=== PATIENT | female | born 1930 | race Caucasian/White ===

== ENCOUNTER 2016-05-12 12:55 | Inpatient (IN) | payer MEDICARE ==
[~2016-05-12] VITALS: Ht 152.4 cm; Wt 86.8 kg
[2016-05-12] VITALS (10 sets, daily range): BP systolic 120–220; BP diastolic 68–126; PULSE 72–99; RESP 20–32; TEMP 96.9–97.8; O2SAT 90–94
--- NOTE | 2016-05-12 13:42 | PD ---
HPI Chief Complaint: Respiratory Symptoms Time Seen by Provider: 13:23 Travel History International Travel<30 days: No Contact w/Intl Traveler<30days: No Traveled to known affect area: No History of Present Illness HPI This patient complains of shortness of breath. Duration 3 days. Severity is moderate. Partially alleviated by oxygen therapy. This patient is visiting from out of state. She wears oxygen at night. She has history of chronic A. 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 He recently saw her supervisor byproducts and confirmed this. She has no chest pain or fever or cough. She tracks her weight daily and recently gained a couple of pounds. Her legs are not better or worse than usual. She typically has some mild edema. She does take diuretics. She reports compliance with them. PFSH Past Medical History Hx Anticoagulant Therapy: Yes (XARELTO) Heart Rhythm Problems: Yes (A FIB) Cardiovascular Problems: Yes (HTN, CHOL, CHF , A FIB) High Cholesterol: Yes Congestive Heart Failure: Yes Diabetes: Yes Patient Takes Glucophage: No Diminished Hearing: No Hypertension: Yes Respiratory: Yes Thyroid Disease: Yes Tetanus Vaccination: Unknown ?: Not Past Surgical History Cardiac Surgery: Yes Coronary Stent: Yes Eye Surgery: Yes (BILAT. CATARACTS REMOVED) Hysterectomy: Yes (PARTIAL) Social History Alcohol Use: No Tobacco Use: No Substance Use: No Allergies-Medications (Allergen,Severity, Reaction): Coded Allergies: Beta Blockers (Verified Allergy, Severe, 05/12/16) Hydralazine (Verified Allergy, Severe, 05/12/16) Shellfish (Verified Allergy, Severe, 05/12/16) Tenormin (Verified Allergy, Severe, 05/12/16) Reported Meds & Prescriptions Reported Meds & Active Scripts Active Reported Vitamin D (Cholecalciferol) 1,000 Unit Tab 1,000 Units PO DAILY Multi Complete (Multiple Vitamins W/ Minerals) 1 Cap Cap 1 Cap PO DAILY Magnesium Oxide 400 Mg Cap 400 Mg PO DAILY K-Tab (Potassium Chloride) 20 Meq Tab 20 Meq PO DAILY Coq10 (Coenzyme Q10 (Ubidecarenone)) 100 Mg Cap 100 Mg PO DAILY Xarelto (Rivaroxaban) 15 Mg Tab 15 Mg PO HS Lipitor (Atorvastatin Calcium) 10 Mg Tab 10 Mg PO HS Cardizem (Diltiazem HCl) 120 Mg Tab 120 Mg PO HS Glipizide ER (Glipizide) 2.5 Mg Brianda 2.5 Mg PO DAILY Take with breakfast or first main meal of the day Furosemide 20 Mg Tab 20 Mg PO DAILY Diovan (Valsartan) 160 Mg Tab 160 Mg PO BID Cardizem LA (Diltiazem ER 24 HR) 240 Mg Brianda 240 Mg PO DAILY Probiotic (Lactobacillus Acidophilus) 1 Cap Cap 1 Cap PO DAILY Protonix (Pantoprazole Sodium) 40 Mg Tab 40 Mg PO BID Synthroid (Levothyroxine Sodium) 50 Mcg Tab 50 Mcg PO DAILY Review of Systems General / Constitutional: No: Fever Eyes: No: Visual changes HENT: No: Headaches Cardiovascular: Positive: Edema, No: Chest Pain or Discomfort Respiratory: Positive: Shortness of Breath Gastrointestinal: No: Abdominal Pain Genitourinary: No: Dysuria Musculoskeletal: Positive: Edema, No: Pain Skin: No Rash Neurologic: No: Weakness Psychiatric: No: Depression Endocrine: No: Polydipsia Hematologic/Lymphatic: No: Easy Bruising Physical Exam Narrative GENERAL: Well-nourished, well-developed patient in no apparent distress. SKIN: Warm and dry. HEAD: Atraumatic. Normocephalic. EYES: Pupils equal and round. No scleral icterus. No injection or drainage. ENT: No nasal bleeding or discharge. Mucous membranes pink and moist. NECK: Trachea midline. No JVD. CARDIOVASCULAR: Regular rate and rhythm. No murmur appreciated. RESPIRATORY: No accessory muscle use. Sparse basilar crackles. Breath sounds equal bilaterally. No wheeze or rhonchi. GASTROINTESTINAL: Abdomen soft, non-tender, nondistended. Hepatic and splenic margins not palpable. MUSCULOSKELETAL: No obvious deformities. No clubbing. No cyanosis. Trace symmetric edema the feet and ankles. NEUROLOGICAL: Awake and alert. No obvious cranial nerve deficits. Motor grossly within normal limits. Normal speech. PSYCHIATRIC: Appropriate mood and affect; insight and judgment normal. Data Data Last Documented VS Vital Signs Date Time Temp Pulse Resp B/P Pulse Ox O2 Delivery O2 Flow Rate FiO2 05/12/16 14:08 97.0 83 20 180/84 92 Nasal Cannula 3 Orders Complete Blood Count With Diff (05/12/16 13:33) Basic Metabolic Panel (Bmp) (05/12/16 13:33) Prothrombin Time / Inr (Pt) (05/12/16 13:33) Iv Access Insert/Monitor (05/12/16 13:33) Ecg Monitoring (05/12/16 13:33) Oximetry (05/12/16 13:33) Oxygen Administration (05/12/16 13:33) Chest, Single Ap (05/12/16 13:33) Sodium Chloride 0.9% Flush (Ns Flush) (05/12/16 13:45) Clonidine (Catapres) (05/12/16 13:45) Furosemide Inj (Lasix Inj) (05/12/16 13:45) Arterial Blood Gas (Abg) (05/12/16 ) Admit Order (Ed Use Only) (05/12/16 14:45) Labs Laboratory Tests Test 05/12/16 05/12/16 13:35 14:35 White Blood Count 8.4 TH/MM3 Red Blood Count 5.23 MIL/MM3 Hemoglobin 12.9 GM/DL Hematocrit 41.0 % Mean Corpuscular Volume 78.5 FL Mean Corpuscular Hemoglobin 24.7 PG Mean Corpuscular Hemoglobin 31.4 % Concent Red Cell Distribution Width 17.8 % Platelet Count 311 TH/MM3 Mean Platelet Volume 9.2 FL Neutrophils (%) (Auto) 74.4 % Lymphocytes (%) (Auto) 11.9 % Monocytes (%) (Auto) 10.8 % Eosinophils (%) (Auto) 2.1 % Basophils (%) (Auto) 0.8 % Neutrophils # (Auto) 6.2 TH/MM3 Lymphocytes # (Auto) 1.0 TH/MM3 Monocytes # (Auto) 0.9 TH/MM3 Eosinophils # (Auto) 0.2 TH/MM3 Basophils # (Auto) 0.1 TH/MM3 CBC Comment AUTO DIFF Differential Comment AUTO DIFF CONFIRMED Prothrombin Time 14.7 SEC Prothromb Time International 1.3 RATIO Ratio Sodium Level 144 MEQ/L Potassium Level 3.9 MEQ/L Chloride Level 102 MEQ/L Carbon Dioxide Level 37.4 MEQ/L Anion Gap 5 MEQ/L Blood Urea Nitrogen 15 MG/DL Creatinine 0.95 MG/DL Estimat Glomerular Filtration 56 ML/MIN Rate Random Glucose 72 MG/DL Calcium Level 9.0 MG/DL Blood Gas Puncture Site LT RADIAL Blood Gas Patient Temperature 98.6 Blood Gas HCO3 36 mmol/L Blood Gas Base Excess 11.0 mmol/L Blood Gas Oxygen Saturation 84 % Arterial Blood pH 7.45 Arterial Blood Partial 52 mmHG Pressure CO2 Arterial Blood Partial 57 mmHG Pressure O2 Arterial Blood Oxygen Content 14.9 Vol % Arterial Blood 2.0 % Carboxyhemoglobin Arterial Blood Methemoglobin 1.1 % Blood Gas Hemoglobin 12.6 G/DL Oxygen Delivery Device NASAL CANNULA Blood Gas Liter Flow 2.5 L/M MDM Medical Decision Making Medical Screen Exam Complete: Yes Emergency Medical Condition: Yes Medical Record Reviewed: Yes Differential Diagnosis CHF exacerbation, pneumonia, bronchitis, aspiration Narrative Course I have reviewed the patient's electronic medical record. [place] is from [place] of state and never been here before IV placed CBC is normal Metabolic profile is normal except for elevated bicarbonate INR is 1.3 I reviewed her chest x-ray shows moderate congestive failure with left-sided pleural effusion I reviewed her EKG which shows A. fib with a rate of approximately 100 Extended cardiac monitoring reveals A. fib in the 90s Has accelerated hypertension of 212 systolic and a dose of clonidine given I gave her 60 millions IV Lasix She never had any chest pain and no clinical suspicion of ACS I reviewed with hospitalist who will admit for oxygen and diuresis and unclear at this point what if any evaluation of pleural effusion will require She does have known left lung mass and this may be chronic Oxygen bump to 3.5 L nasal cannula after ABG reviewed Diagnosis Primary Impression: Congestive heart failure with cardiomyopathy and cardiomegaly Additional Impressions: Acute respiratory failure with hypoxia and hypercapnia Pleural effusion on left Admitting Information Admitting Physician Requests: Admit Sajan Seals MD May 12, 2016 13:42
[2016-05-12] MEDS ORDERED: SODIUM CHLORIDE 0.9% FLUSH 5 ML FLUSH IVF PRN (13:45)
[2016-05-12] MEDS ORDERED: cloNIDine HCL 0.2 MG TAB PO ONE (13:45)
[2016-05-12] MEDS ORDERED: FUROSEMIDE 100 MG/10 ML VIAL IV PUSH ONE (13:45)
[2016-05-12] MEDS ORDERED: DIOV160T6 PO (13:49)
[2016-05-12] MEDS ORDERED: GLIP1TAB60 PO (13:49)
[2016-05-12] MEDS ORDERED: MAGN400C2 PO (13:49)
[2016-05-12] MEDS ORDERED: LIPI10TA PO (13:49)
[2016-05-12] MEDS ORDERED: LACTCAP8 PO (13:49)
[2016-05-12] MEDS ORDERED: PROT40TA PO (13:49)
[2016-05-12] MEDS ORDERED: MULTCAP13 PO (13:49)
[2016-05-12] MEDS ORDERED: VITA100064 PO (13:49)
[2016-05-12] MEDS ORDERED: COQ1100C PO (13:49)
[2016-05-12] MEDS ORDERED: FURO20TA PO (13:49)
[2016-05-12] MEDS ORDERED: LEVO.05 PO (13:49)
[2016-05-12] MEDS ORDERED: XARE15TA PO (13:49)
[2016-05-12] MEDS ORDERED: POTA1TAB4 PO (13:49)
[2016-05-12] MEDS ORDERED: DILT1TAB2 PO (13:49)
[2016-05-12] MEDS ORDERED: CARD120T4 PO (13:49)
[2016-05-12 13:52] LABS: AUTOMATED NEUTROPHIL # 6.2 TH/MM3 (1.8-7.7); BASOPHIL # 0.1 TH/MM3 (0-0.2); BASOPHIL % 0.8 % (0.0-2.0); EOSINOPHIL # 0.2 TH/MM3 (0-0.4); EOSINOPHIL % 2.1 % (0.0-4.0); LYMPH % 11.9 % (9.0-44.0); MEAN CELL VOLUME 78.5 FL (80.0-100.0); MEAN CORPUSCULAR HEMOGLOBIN 24.7 PG (27.0-34.0); MEAN CORPUSCULAR HGB CONC 31.4 % (32.0-36.0); MONO % 10.8 % (0.0-8.0); NEUT % 74.4 % (16.0-70.0); PLATELET COUNT 311 TH/MM3 (150-450); RED BLOOD COUNT 5.23 MIL/MM3 (4.00-5.30); RED CELL DISTRIBUTION WIDTH 17.8 % (11.6-17.2); WHITE BLOOD COUNT 8.4 TH/MM3 (4.0-11.0)
[2016-05-12 13:54] LABS: HEMO FLAGS AUTO DIFF
[2016-05-12 14:03] LABS: POTASSIUM 3.9 MEQ/L (3.5-5.1)
--- NOTE | 2016-05-12 14:03 | RADHPO ---
EXAM DATE/TIME: 05/12/2016 13:45 [facility] COMPARISON: No previous studies available for comparison. INDICATIONS : Very short of breath for the past 3 days, no chest pain MEDICAL HISTORY : Cardiovascular disease. Hypertension. SURGICAL HISTORY : Coronary artery stent. ENCOUNTER: Initial ACUITY: 3 days PAIN SCORE: 0/10 LOCATION: Bilateral chest FINDINGS: A single view of the chest demonstrates left basilar consolidation/effusion. There is some prominent interstitial markings and cardiomegaly. Spectrum of findings is concerning for some degree of CHF. De generative spurring in the dorsal spine. Osseous structures are otherwise intact. CONCLUSION: Cardiomegaly with CHF and left-sided effusion. Lj Marquez MD on May 12, 2016 at 13:59 Board Certified Radiologist. This report was verified electronically.
[2016-05-12 14:07] LABS: INTERNATIONAL NORMALIZED RATIO 1.3 RATIO; PROTHROMBIN TIME - PATIENT 14.7 SEC (9.8-11.6)
[2016-05-12 14:09] LABS: BICARBONATE 37.4 MEQ/L (21.0-32.0)
[2016-05-12 14:11] LABS: SCAN/DIFF AUTO DIFF CONFIRMED
[2016-05-12 14:44] LABS: BLOOD GAS HCO3 36 mmol/L (22-26); BLOOD GAS METHEMOGLOBIN 1.1 % (0-2); BLOOD GAS O2 HGB SATURATION 84 % (90-100); BLOOD GAS OXYGEN CONTENT 14.9 Vol % (12.0-20.0); BLOOD GAS PCO2 52 mmHG (38-42); BLOOD GAS PO2 57 mmHG (61-120); BLOOD GAS TOTAL HGB 12.6 G/DL (12.0-16.0); CRITICAL VALUE YES; DRAW SITE LT RADIAL; LITER FLOW 2.5 L/M; NUMBER OF ARTERIAL PUNCTURES 1; OXYGEN DEVICE NASAL CANNULA; TEMP CORR TO 98.6; ULNAR PULSE PRESENT
[2016-05-12 14:45] LABS: STAT YES
[2016-05-12] MEDS ORDERED: MAGNESIUM HYDROXIDE SUSP 30 ML CUP PO PRN (15:15)
[2016-05-12] MEDS ORDERED: ACETAMINOPHEN 325 MG TAB PO PRN (15:15)
[2016-05-12] MEDS ORDERED: SODIUM CHLORIDE 0.9% FLUSH 5 ML FLUSH FLUSH PRN (15:15)
[2016-05-12] MEDS ORDERED: ONDANSETRON HCL 4 MG/2 ML VIAL IVP PRN (15:15)
--- NOTE | 2016-05-12 15:16 | HHI.HP ---
[facility] Service [facility] Primary Care Physician Non-Staff Admission Diagnosis acute of exac of chronic systolic CHF, L pleural effusion Diagnoses: (1) Acute on chronic respiratory failure with hypoxia and hypercapnia Diagnosis: Principal (2) Acute exacerbation of congestive heart failure Diagnosis: Principal (3) Accelerated hypertension Diagnosis: Principal (4) Coronary artery disease Diagnosis: Secondary (5) Hyperlipidemia Diagnosis: Secondary (6) Diabetes Diagnosis: Secondary (7) Hypothyroidism Diagnosis: Secondary (8) Chronic atrial fibrillation Diagnosis: Secondary Chief Complaint: Shortness of breath and dyspnea Travel History International Travel<30 Days: No Contact w/Intl Traveler <30 Da: No Traveled to Known Affected Are: No History of Present Illness 85-year-old female with known history of hypertension, hyperlipidemia , congestive heart failure, chronic atrial fibrillation, chronic respiratory failure on home oxygen, diabetes, hypothyroidism who presented to hospital because of shortness of breath and dyspnea. Patient does have chronic respiratory failure which she is on 2 L of oxygen at night. Patient states that she has been using it however she has noticed that she is very tired whenever she takes it off in the morning. The patient is rather pleasant and [place] 3 [place]. [place] [facility] which one is in [place], another in [place], and another one in [facility]. 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 Her and her daughter from [place] were traveling down to [place] for a little get away 1-1/2 weeks ago. Over the last 3-4 days she has had increased shortness of breath, dyspnea on exertion. [place] walk out to the end, however she had to stop multiple times on the walk back. She started struggling with breathing so she came to the hospital for evaluation. Patient found to have acute respiratory failure with hypoxia, hypercapnia with CHF exacerbation. Patient denies any chest pain , abdominal pain, nausea, vomiting, diaphoresis. Patient does have history of left-sided lung nodule which she is followed by tape recording machine operator. She states that she just had x-rays done and does not appear to have grown in any size. Review of Systems Constitutional: DENIES: Diaphoretic episodes, Fatigue, Fever, Weight gain, Weight loss, Chills, Dizziness, Change in appetite, Night Sweats Eyes: DENIES: Blurred vision, Diplopia, Eye inflammation, Eye pain, Vision loss , Double Vision Ears, nose, mouth, throat: DENIES: Vertigo, Nasal discharge, Throat pain, Ear Pain, Running Nose, Sinus Pain Respiratory: COMPLAINS OF: Shortness of breath, DENIES: Apneas, Cough, Snoring , Wheezing, Hemoptysis, Sputum production Cardiovascular: COMPLAINS OF: Dyspnea on Exertion, Lower Extremity Edema, DENIES: Chest pain, Palpitations, Syncope, Orthopnea Gastrointestinal: DENIES: Abdominal pain, Black stools, Bloody stools, Constipation, Diarrhea, Nausea, Vomiting, Difficulty Swallowing, Anorexia Neurologic: DENIES: Abnormal gait, Headache, Localized weakness, Paresthesias, Seizures, Speech Problems, Tremor, Poor Balance Past Family Social History Past Medical History Congestive heart failure Chronic atrial fibrillation Hyperlipidemia Hypothyroidism Hypertension Diabetes Coronary artery disease Past Surgical History Cardiac catheterization with stenting Bilateral cataract surgery Hysterectomy Kidney stone removal Reported Medications Reported Meds & Active Scripts Active Reported Vitamin D (Cholecalciferol) 1,000 Unit Tab 1,000 Units PO DAILY Multi Complete (Multiple Vitamins W/ Minerals) 1 Cap Cap 1 Cap PO DAILY Magnesium Oxide 400 Mg Cap 400 Mg PO DAILY K-Tab (Potassium Chloride) 20 Meq Tab 20 Meq PO DAILY Coq10 (Coenzyme Q10 (Ubidecarenone)) 100 Mg Cap 100 Mg PO DAILY Xarelto (Rivaroxaban) 15 Mg Tab 15 Mg PO HS Lipitor (Atorvastatin Calcium) 10 Mg Tab 10 Mg PO HS Cardizem (Diltiazem HCl) 120 Mg Tab 120 Mg PO HS Glipizide ER (Glipizide) 2.5 Mg Brianda 2.5 Mg PO DAILY Take with breakfast or first main meal of the day Furosemide 20 Mg Tab 20 Mg PO DAILY Diovan (Valsartan) 160 Mg Tab 160 Mg PO BID Cardizem LA (Diltiazem ER 24 HR) 240 Mg Brianda 240 Mg PO DAILY Probiotic (Lactobacillus Acidophilus) 1 Cap Cap 1 Cap PO DAILY Protonix (Pantoprazole Sodium) 40 Mg Tab 40 Mg PO BID Synthroid (Levothyroxine Sodium) 50 Mcg Tab 50 Mcg PO DAILY Allergies: Coded Allergies: Beta Blockers (Verified Allergy, Severe, 2/16/17) Hydralazine (Verified Allergy, Severe, 05/12/16) Shellfish (Verified Allergy, Severe, 05/12/16) Tenormin (Verified Allergy, Severe, 05/12/16) Family History Reviewed and significant for father having black lung, mother having heart disease, stroke, CHF. Brother with CHF, sarcoidosis Social History Patient states that back in the 50s she used to smoke 1-2 cigarettes a month. She drink alcohol very rarely. Denies any illicit drugs Physical Exam Vital Signs Vital Signs Date Time Temp Pulse Resp B/P Pulse Ox O2 Delivery O2 Flow Rate FiO2 05/12/16 14:08 97.0 83 20 180/84 92 Nasal Cannula 3 05/12/16 13:57 83 20 180/84 92 Nasal Cannula 3 05/12/16 13:38 92 22 93 Nasal Cannula 3 05/12/16 13:36 94 Nasal Cannula 3 05/12/16 13:28 22 93 Nasal Cannula 3 05/12/16 13:08 97.8 99 22 220/104 94 Physical Exam GENERAL: Well-developed, well-nourished, in no acute distress. alert and orientated HEENT: Head is normocephalic without any lesions or masses noted. Facial features are symmetric. Eyes: Pupils equal round reactive to light. Extraocular muscles are intact. Conjunctivae were clear. Oropharyngeal: Pharynx without any erythema edema. Tongue is midline without deviation. Buccal mucosa is moist without any masses or lesions NECK: Supple without any masses. Trachea midline no deviation. No JVD, no bruits are appreciated CARDIAC: Regular rhythm, regular rate. S1/S2 are heard. No murmurs gallops or rubs. LUNGS: Patient very short of breath, cannot complete full sentences. crackles noted bilaterally, no wheeze, rhonchi or rales. No use of accessory muscles on inspiration or expiration. ABDOMEN: Soft, nontender. Nondistended. Bowel sounds heard in all 4 quadrants. No organomegaly or masses. Negative rebound, negative guarding EXTREMITIES: 1+ pitting edema noted bilateral lower extremities, pulses are equal bilaterally. No cyanosis or clubbing NEUROLOGY: Mood and affect appear appropriate. Cranial nerves II through XII grossly intact. Muscle strength 5/5 in upper and lower extremities bilaterally. Deep tendon reflexes are 2+ in upper and lower extremities bilaterally. Laboratory Laboratory Tests Test 05/12/16 05/12/16 13:35 14:35 White Blood Count 8.4 Red Blood Count 5.23 Hemoglobin 12.9 Hematocrit 41.0 Mean Corpuscular Volume 78.5 Mean Corpuscular Hemoglobin 24.7 Mean Corpuscular Hemoglobin 31.4 Concent Red Cell Distribution Width 17.8 Platelet Count 311 Mean Platelet Volume 9.2 Neutrophils (%) (Auto) 74.4 Lymphocytes (%) (Auto) 11.9 Monocytes (%) (Auto) 10.8 Eosinophils (%) (Auto) 2.1 Basophils (%) (Auto) 0.8 Neutrophils # (Auto) 6.2 Lymphocytes # (Auto) 1.0 Monocytes # (Auto) 0.9 Eosinophils # (Auto) 0.2 Basophils # (Auto) 0.1 CBC Comment AUTO DIFF Differential Comment AUTO DIFF CONFIRMED Prothrombin Time 14.7 Prothromb Time International 1.3 Ratio Sodium Level 144 Potassium Level 3.9 Chloride Level 102 Carbon Dioxide Level 37.4 Anion Gap 5 Blood Urea Nitrogen 15 Creatinine 0.95 Estimat Glomerular Filtration 56 Rate Random Glucose 72 Calcium Level 9.0 Blood Gas Puncture Site LT RADIAL Blood Gas Patient Temperature 98.6 Blood Gas HCO3 36 Blood Gas Base Excess 11.0 Blood Gas Oxygen Saturation 84 Arterial Blood pH 7.45 Arterial Blood Partial 52 Pressure CO2 Arterial Blood Partial 57 Pressure O2 Arterial Blood Oxygen Content 14.9 Arterial Blood 2.0 Carboxyhemoglobin Arterial Blood Methemoglobin 1.1 Blood Gas Hemoglobin 12.6 Oxygen Delivery Device NASAL CANNULA Blood Gas Liter Flow 2.5 Result Diagram: 05/12/16 1335 05/12/16 1335 Imaging Last Impressions Chest X-Ray 05/12/16 1333 Signed Impressions: Service Date/Time: April 13:45 - CONCLUSION: Cardiomegaly with CHF and left-sided effusion. Lj Marquez MD Assessment and Plan Assessment and Plan Acute on chronic hypercapnic, hypoxic respiratory failure, likely secondary to the congestive heart failure exacerbation Continue O2 supplementation maintain O2 sats greater than 92% Acute congestive heart failure, unknown chronicity. Accelerated hypertension could be the etiology of the acute CHF Continue Lasix 40 mg IV every 12 hours Continue potassium 20 mEq daily Monitor strict input and output - patient declines Blake Obtain echocardiogram Left pleural effusion -Possibly symptomatic. No previous history per the patient or daughter. They will consider thoracentesis tomorrow if symptomatology not significantly improved with diuresis. Accelerated hypertension Continue home medications Clonidine as needed Chronic atrial fibrillation Anticoagulated with Xarelto Continue Cardizem Diabetes Oral hypoglycemics have been continued Accu-Cheks with sliding scale insulin Hyperlipidemia continue statin Hypothyroidism Continue replacement therapy DVT prevention Patient on Xarelto DO NOT RESUSCITATE CODE STATUS. I discussed with the patient and daughter Abelardo with patient's nurse present. Patient states that she was intubated and in the ICU for 22 days in 2014 and she does not want either CPR or intubation again. She also further declined BiPAP. Written by Sajan Alvarez PA-C, acting as scribe for Dr. Amin on 05/12/16 at 16:00 The documentation accurately reflects the work and decisions performed face-to- face by Dr. Amin on 05/12/16 at 16:00 Physician Certification 2 Midnight Certification Type: Admission for Inpatient Services Order for Inpatient Services The services are ordered in accordance with Medicare regulations or non- Medicare payer requirements, as applicable. In the case of services not specified as inpatient-only, they are appropriately provided as inpatient services in accordance with the 2-midnight benchmark. Estimated LOS (days): 3 days is the estimated time the patient will need to remain in the hospital, assuming treatment plan goals are met and no additional complications. Post-Hospital Plan: Not yet determined Problem Qualifiers (1) Acute exacerbation of congestive heart failure: Qualified Code: I50.9 - Acute on chronic congestive heart failure, unspecified congestive heart failure type (2) Coronary artery disease: Qualified Code: I25.10 - Coronary artery disease, angina presence unspecified, unspecified vessel or lesion type, unspecified whether [place] or transplanted heart (3) Hyperlipidemia: Qualified Code: E78.5 - Hyperlipidemia, unspecified hyperlipidemia type (4) Diabetes: Qualified Code: E11.8 - Type 2 diabetes mellitus with complication, without long-term current use of insulin (5) Hypothyroidism: Qualified Code: E03.9 - Hypothyroidism, unspecified type Sajan Alvarez May 12, 2016 15:16 Samara Amin MD May 12, 2016 18:32
[2016-05-12 15:23] LABS: INDIRECT BILIRUBIN 0.3 MG/DL (0.0-0.8); TOTAL BILIRUBIN ADULT 0.4 MG/DL (0.2-1.0)
[2016-05-12] MEDS ORDERED: DEXTROSE 50% IN WATER 50 ML VIAL(D50) IV PUSH PRN (15:45)
[2016-05-12] MEDS ORDERED: GLUCAGON 1 MG/ML VIAL OTHER PRN (15:45)
[2016-05-12] MEDS ORDERED: cloNIDine HCL 0.1 MG TAB PO PRN (15:45)
[2016-05-12] MEDS ORDERED: RESP: ALBUTEROL 2.5 MG/IPRATROPIUM 0.5 MG NEB (PRN) NEB (16:00)
[2016-05-12] MEDS: INSULIN ASPART SUPPLEMENTAL SCALE SQ SCH ×2 (16:36→21:02)
[2016-05-12] MEDS: RESP: ALBUTEROL 2.5 MG/IPRATROPIUM 0.5 MG NEB (SCH) NEB ×2 (16:42→19:43)
[2016-05-12] MEDS: FUROSEMIDE 20 MG/2 ML VIAL IV PUSH SCH (17:54)
[2016-05-12] MEDS ORDERED: FUROSEMIDE 20 MG/2 ML VIAL IV PUSH SCH (18:00)
[2016-05-12] MEDS: PANTOPRAZOLE SOD 40 MG DELAYED RELEASE TAB PO SCH (21:03)
[2016-05-12] MEDS: SODIUM CHLORIDE 0.9% FLUSH 5 ML FLUSH FLUSH SCH (21:03)
[2016-05-12] MEDS: ATORVASTATIN 10 MG TAB PO SCH (21:04)
[2016-05-12] MEDS: DILTIAZEM-CD 120 MG CAP ER PO SCH (21:04)
[2016-05-12] MEDS: RIVAROXABAN 15 MG TAB PO SCH (21:05)
[2016-05-12] MEDS: VALSARTAN 160 MG TAB PO SCH (21:05)
[2016-05-13] VITALS (14 sets, daily range): BP systolic 121–148; BP diastolic 60–86; PULSE 76–103; RESP 18–32; TEMP 95.3–98; O2SAT 91–96
[2016-05-13] MEDS ORDERED: diphenhydrAMINE HCL 25 MG CAP PO ONE (01:15)
[2016-05-13] MEDS: INSULIN ASPART SUPPLEMENTAL SCALE SQ SCH ×4 (06:05→21:00)
[2016-05-13] MEDS: LEVOTHYROXINE SODIUM 50 MCG TAB PO SCH (06:07)
[2016-05-13 06:53] LABS: POTASSIUM 3.9 MEQ/L (3.5-5.1)
[2016-05-13 06:59] LABS: BICARBONATE 39.4 MEQ/L (21.0-32.0)
[2016-05-13] MEDS: RESP: ALBUTEROL 2.5 MG/IPRATROPIUM 0.5 MG NEB (SCH) NEB ×2 (08:00→11:23)
[2016-05-13] MEDS: DILTIAZEM-CD 240 MG CAP ER PO SCH (08:41)
[2016-05-13] MEDS: POTASSIUM CHLORIDE 20 MEQ CONTROLLED RELEASE TAB PO SCH (08:41)
[2016-05-13] MEDS: MULTIVITAMINS/MINERALS THERAPEUTIC TAB PO SCH (08:41)
[2016-05-13] MEDS: VALSARTAN 160 MG TAB PO SCH ×2 (08:41→20:57)
[2016-05-13] MEDS: glipiZIDE 5 MG TAB PO SCH (08:41)
[2016-05-13] MEDS: SODIUM CHLORIDE 0.9% FLUSH 5 ML FLUSH FLUSH SCH ×2 (08:41→20:57)
[2016-05-13] MEDS: MAGNESIUM OXIDE 400 MG TAB PO SCH (08:42)
[2016-05-13] MEDS: FUROSEMIDE 20 MG/2 ML VIAL IV PUSH SCH ×2 (08:42→16:56)
[2016-05-13] MEDS: PANTOPRAZOLE SOD 40 MG DELAYED RELEASE TAB PO SCH ×2 (08:42→20:57)
[2016-05-13] MEDS: LACTOBACILLUS ACIDOPHILUS TAB PO SCH (08:42)
--- NOTE | 2016-05-13 10:11 | RADHPO ---
EXAM DATE/TIME: 05/13/2016 09:58 [facility] COMPARISON: CHEST SINGLE AP, May 12, 2016, 13:45. INDICATIONS : Pleural effusion. Short of breath. MEDICAL HISTORY : Hypercholesterolemia. Renal calculi. Arthritis. Hypertension. CHF. A-fib. Sleep apnea. GERD. Diab etic. SURGICAL HISTORY : Hysterectomy. Cardiac stent. ENCOUNTER: Initial ACUITY: 2 days PAIN SCORE: 0/10 LOCATION: chest FINDINGS: A single AP erect view of the chest was obtained again demonstrates cardiomegaly. A left costophrenic angle remains blunted and there are mild streaky infiltrates in both lungs. There is more coarse apa rent scarring in the left upper lobe. Atherosclerotic changes are present in the aorta. There are mul tiple overlying electrocardiogram leads. The bony thorax is intact. CONCLUSION: No significant change. Ronen Flanagan MD on May 13, 2016 at 10:08 Board Certified Radiologist. This report was verified electronically.
--- NOTE | 2016-05-13 11:22 | HHI.PR ---
Subjective Remarks The patient still feels quite short of breath and not significantly improved. She did not sleep well and requested Benadryl at night. She had 1400 MLS negative fluid balance. She is still concerned about the hiatal hernia. She and her daughter have many questions regarding thoracentesis. She also states that the DuoNeb's make her jittery and request them to be when necessary. Objective Vitals Vital Signs Date Time Temp Pulse Resp B/P Pulse Ox O2 Delivery O2 Flow Rate FiO2 05/13/16 08:13 95.3 103 18 146/62 95 05/13/16 07:50 95 Nasal Cannula 4.00 05/13/16 07:50 95 Nasal Cannula 4.00 05/13/16 06:25 83 140/72 93 05/13/16 06:15 76 05/13/16 06:14 100 05/13/16 04:00 97.0 77 32 148/76 91 Automatic Cuff 05/13/16 00:00 98.0 79 32 130/60 92 05/12/16 20:00 72 05/12/16 20:00 97.1 84 32 120/68 90 05/12/16 19:43 91 Nasal Cannula 4.00 05/12/16 19:43 91 Nasal Cannula 4.00 05/12/16 18:00 93 05/12/16 17:52 93 20 158/78 93 05/12/16 17:38 96.9 85 20 178/126 94 05/12/16 16:45 92 Nasal Cannula 3.50 05/12/16 16:45 93 Nasal Cannula 3.50 05/12/16 14:08 97.0 83 20 180/84 92 Nasal Cannula 3 05/12/16 13:57 83 20 180/84 92 Nasal Cannula 3 05/12/16 13:38 92 22 93 Nasal Cannula 3 05/12/16 13:36 94 Nasal Cannula 3 05/12/16 13:28 22 93 Nasal Cannula 3 05/12/16 13:08 97.8 99 22 220/104 94 I/O 05/12/16 05/12/16 05/12/16 05/13/16 05/13/16 05/13/16 07:00 15:00 23:00 07:00 15:00 23:00 Intake Total 1380 ml 120 ml Output Total 500 ml 1950 ml 450 ml Balance -500 ml -570 ml -330 ml Intake Oral 1380 ml 120 ml IV Total 0 ml 0 ml Output Urine Total 500 ml 1950 ml 450 ml # Voids 2 2 # Bowel Movements 0 0 Result Diagram: 05/12/16 1335 05/13/16 0540 Objective Remarks GENERAL: Well-nourished, well-developed pleasant elderly female patient. SKIN: Warm and dry. HEAD: Normocephalic. EYES: No scleral icterus. No injection or drainage. NECK: Supple, trachea midline. No JVD or lymphadenopathy. CARDIOVASCULAR: Regular rate and rhythm without murmurs, gallops, or rubs. RESPIRATORY: Breath sounds diminished in the left base. Mildly increased respiratory rate on 4 L nasal cannula. Faint crackles at the bases bilaterally. GASTROINTESTINAL: Abdomen soft, non-tender, nondistended. EXTREMITIES: Trace pedal edema bilaterally. NEUROLOGICAL: Awake, alert, and oriented x 3. Non-focal. Cognitively sharp. A/P Problem List: (1) Acute on chronic respiratory failure with hypoxia and hypercapnia ICD Code: J96.21 Status: Acute (2) Acute exacerbation of congestive heart failure ICD Code: I50.9 Status: Acute (3) Accelerated hypertension ICD Code: I10 Status: Acute (4) Coronary artery disease ICD Code: I25.10 Status: Acute (5) Hyperlipidemia ICD Code: E78.5 Status: Acute (6) Diabetes ICD Code: E11.9 Status: Acute (7) Hypothyroidism ICD Code: E03.9 Status: Acute (8) Chronic atrial fibrillation ICD Code: I48.2 Status: Acute (9) Pleural effusion on left ICD Code: J90 Status: Acute Assessment and Plan Acute on chronic hypercapnic, hypoxic respiratory failure, likely secondary to the congestive heart failure exacerbation and left pleural effusion Continue O2 supplementation maintain O2 sats greater than 92% -DuoNeb's when necessary. Diuresis and thoracentesis as below. Acute congestive heart failure, unknown chronicity. Accelerated hypertension could be the etiology of the acute CHF Continue Lasix 40 mg IV every 12 hours Continue potassium 20 mEq daily Monitor strict input and output - patient declines Blake Follow-up echocardiogram Left pleural effusion -Probably symptomatic. No previous history per the patient or daughter. -After much discussion with the patient and the daughter the patient has elected to proceed with left thoracentesis via CT. She is very concerned that the radiologist might accidentally hit the hiatal hernia and I spent about 20 minutes discussing this with the patient and the daughter. Patient is aware of risk of pneumothorax and wishes to proceed. I will order pleural fluid studies. Accelerated hypertension - improved. Continue home medications Clonidine as needed History of left upper lobe lung mass versus nodule. Only scarring is seen on the chest x-ray. Chest CT today. Patient does not want to pursue any treatment for this. Chronic atrial fibrillation Anticoagulated with Xarelto Continue Cardizem Diabetes Oral hypoglycemics have been continued Accu-Cheks with sliding scale insulin Hyperlipidemia continue statin Hypothyroidism Continue replacement therapy DVT prevention Patient on Xarelto DO NOT RESUSCITATE CODE STATUS. Problem Qualifiers (1) Acute exacerbation of congestive heart failure: Qualified Code: I50.9 - Acute on chronic congestive heart failure, unspecified congestive heart failure type (2) Coronary artery disease: Qualified Code: I25.10 - Coronary artery disease, angina presence unspecified, unspecified vessel or lesion type, unspecified whether [place] or transplanted heart (3) Hyperlipidemia: Qualified Code: E78.5 - Hyperlipidemia, unspecified hyperlipidemia type (4) Diabetes: Qualified Code: E11.8 - Type 2 diabetes mellitus with complication, without long-term current use of insulin (5) Hypothyroidism: Qualified Code: E03.9 - Hypothyroidism, unspecified type Samara Amin MD May 13, 2016 11:22
--- NOTE | 2016-05-13 13:06 | RADHPO ---
EXAM DATE/TIME: 05/13/2016 12:19 [facility] COMPARISON: No previous studies available for comparison. INDICATIONS: Short of breath. Pleural effusion. RADIATION DOSE: 17.25 CTDIvol (mGy) MEDICAL HISTORY: Hernia, hiatal. Gastroesophageal reflux disease. Diabetes mellitus type 2. Renal stones. Hypertension. Congestive heart failure. SURGICAL HISTORY: Hysterectomy. ENCOUNTER: Initial ACUITY: 4 - 6 days PAIN SCALE: 2/10 LOCATION: Left chest TECHNIQUE: Volumetric scanning of the chest was performed. Using automated exposure control and adjustment of the mA and/or kV according to patient size, radiation dose was kept as low as reasonab ly achievable to obtain optimal diagnostic quality images. FINDINGS: There is mild interstitial edema present with cardiomegaly and extensive coronary calcifications. Th ere is some pleural thickening on the right. There is trace pleural effusion on the right. Trace effusion is pr esent on the left. There is no axillary adenopathy. There is no radiographically significant mediastinal adenopathy. Large hiatal hernia is evident. CONCLUSION: 1. Cardiomegaly with mild interstitial edema. 2. Extensive coronary calcifications including LAD and circumflex. 3. Circumflex stenting is evident. 4. Trace pleural effusion. Xander Fonseca MD FACR on May 13, 2016 at 12:57 Board Certified Radiologist. This report was verified electronically.
[2016-05-13] MEDS ORDERED: OXYGENTANK NAS.CANULA (14:35)
[2016-05-13] MEDS ORDERED: [UNRECOGNIZED DRUG - SUPPLY] (14:38)
--- NOTE | 2016-05-13 14:55 | RADHPO ---
EXAM DATE/TIME: 05/13/2016 00:00 [facility] COMPARISON: No previous studies available for comparison. INDICATIONS : Request for CT guided thoracentesis. FINDINGS: Patient imaging studies were reviewed including a plain film of the chest and CT of the same from 04-27. Small amount of fluid is identified in the left hemithorax. The volume is insufficient for pe rcutaneous drainage CONCLUSION: Insufficient volume for CT guided thoracentesis of the left hemithorax. Lj Marquez MD on May 13, 2016 at 14:33 Board Certified Radiologist. This report was verified electronically.
--- NOTE | 2016-05-13 17:31 | EKG ---
Date Performed: 05/12/2016 Time Performed: 13:08:34 PTAGE: 85 years EKG: Atrial fibrillation with rapid ventricular response Poor R wave progression - probable norm al variant Lateral T wave changes are nonspecific Low QRS voltages in precordial leads Abnormal ECG NO PREVIOUS TRACING Clinical correlation recommended. DOCTOR: Jona Schaeffer Interpretating Date/Time 05/13/2016 17:30:04
--- NOTE | 2016-05-13 19:01 | EC ---
Study Study Date:05/13/2016 STUDY CONCLUSIONS SUMMARY - Left ventricle: The cavity size was normal. Wall thickness was increased in a pattern of moderate LVH. There was concentric hypertrophy. Systolic function was normal. The estimated ejection fraction was in the range of 55% to 60%. Wall motion was normal; there were no regional wall motion abnormalities. - Aortic valve: There was mild stenosis. - Mitral valve: Mildly calcified annulus. Mildly calcified leaflets, . Mild regurgitation. - Left atrium: The atrium was moderately dilated. - Right atrium: The atrium was moderately dilated. - Tricuspid valve: Mild regurgitation. - Pulmonary arteries: PA peak pressure: 66mm Hg (S). If LV function is below 40, please consider prescribing an ACEI or ARB or document rationale for non-use. PROCEDURE DATA STUDY STATUS: Elective. Procedure: Transthoracic echocardiography. Image quality was good. Scanning was performed from the parasternal, apical, and subcostal acoustic windows. Study completion: The patient tolerated the procedure well. Transthoracic echocardiography. M-mode, complete 2D, complete spectral Doppler, and color Doppler. Patient status: Inpatient. CARDIAC ANATOMY LEFT VENTRICLE: The cavity size was normal. Wall thickness was increased in a pattern of moderate LVH. There was concentric hypertrophy. Systolic function was normal. The estimated ejection fraction was in the range of 55% to 60%. Wall motion was normal; there were no regional wall motion abnormalities. AORTIC VALVE: Mildly calcified leaflets. Doppler: There was mild stenosis. No significant regurgitation. Valve area: 0.62cm^2(VTI). Valve area: 0.59cm^2 (Vmax). Mean gradient: 15mm Hg (S). Peak gradient: 26mm Hg (S). MITRAL VALVE: Mildly calcified annulus. Mildly calcified leaflets, . Doppler: There was no evidence for stenosis. Mild regurgitation. LEFT ATRIUM: The atrium was moderately dilated. PULMONIC VALVE: Not well visualized. Doppler: There was no evidence for stenosis. No significant regurgitation. TRICUSPID VALVE: The valve appears to be grossly normal. Doppler: There was no evidence for stenosis. Mild regurgitation. RIGHT ATRIUM: The atrium was moderately dilated. PERICARDIUM: There was no pericardial effusion. BASIC MEASUREMENTS ADULT Normal Left ventricle LV internal dimension, ED, chordal level, 49.3 mm 43-52 PLAX LV internal dimension, ES, chordal level, 36.4 mm 23-38 PLAX Fractional shortening, chordal level, PLAX *26 % >29 LV posterior wall thickness, ED 12.4 mm IVS/LVPW ratio, ED *1.34 <1.3 Ventricular septum Septal thickness, ED 16.6 mm Aortic valve Leaflet separation 15 mm 15-26 Right ventricle RV internal dimension, ED, PLAX 30.2 mm 19-38 BASIC MEASUREMENTS ADULT Normal Aortic valve Leaflet separation 15 mm 15-26 Aorta Root diameter, ED 25 mm 20-37 Left atrium Anterior-posterior dimension, ES *52 mm 19-40 LA/aortic root ratio 2.08 DOPPLER MEASUREMENTS ADULT Normal Main pulmonary artery Pressure, S *66 mm Hg =30 Aortic valve Peak velocity, S 256 cm/s Mean velocity, S 182 cm/s VTI, S 55.1 cm Mean gradient, S 15 mm Hg Peak gradient, S 26 mm Hg Valve area, VTI 0.62 cm^2 Valve area, Vmax 0.59 cm^2 Tricuspid valve Regurgitant peak velocity 375 cm/s Peak RV-RA gradient, S 56 mm Hg Maximal regurgitant velocity 375 cm/s Systemic veins Estimated CVP 10 mm Hg Right ventricle RV pressure, S *66 mm Hg <30 LEGEND: Mean values are shown as u=mean value. Asterisk (*) cuellar values outside specified normal range. Prepared and signed by Byron Bellamy [id number]
[2016-05-13] MEDS: DILTIAZEM-CD 120 MG CAP ER PO SCH (20:56)
[2016-05-13] MEDS: ATORVASTATIN 10 MG TAB PO SCH (20:57)
[2016-05-13] MEDS: RIVAROXABAN 15 MG TAB PO SCH (20:57)
[2016-05-13] MEDS ORDERED: NITR0.2D T-DERMAL (21:36)
[2016-05-13] MEDS ORDERED: ZYRT10CA PO (21:36)
[2016-05-13] MEDS: diphenhydrAMINE HCL 25 MG CAP PO PRN (22:33)
[2016-05-14] VITALS (10 sets, daily range): BP systolic 113–160; BP diastolic 66–98; PULSE 73–84; RESP 16–22; TEMP 95.7–98.1; O2SAT 92–96
[2016-05-14] MEDS: LEVOTHYROXINE SODIUM 50 MCG TAB PO SCH (05:26)
[2016-05-14] MEDS: INSULIN ASPART SUPPLEMENTAL SCALE SQ SCH ×4 (05:26→20:24)
[2016-05-14 07:31] LABS: POTASSIUM 4.1 MEQ/L (3.5-5.1)
[2016-05-14 07:34] LABS: BICARBONATE 39.2 MEQ/L (21.0-32.0)
[2016-05-14] MEDS: glipiZIDE 5 MG TAB PO SCH (08:00)
[2016-05-14] MEDS: MAGNESIUM OXIDE 400 MG TAB PO SCH (09:00)
[2016-05-14] MEDS: LACTOBACILLUS ACIDOPHILUS TAB PO SCH (09:00)
[2016-05-14] MEDS: VALSARTAN 160 MG TAB PO SCH ×2 (09:00→20:20)
[2016-05-14] MEDS: DILTIAZEM-CD 240 MG CAP ER PO SCH (09:00)
[2016-05-14] MEDS: SODIUM CHLORIDE 0.9% FLUSH 5 ML FLUSH FLUSH SCH ×2 (09:00→20:21)
[2016-05-14] MEDS: POTASSIUM CHLORIDE 20 MEQ CONTROLLED RELEASE TAB PO SCH (09:00)
[2016-05-14] MEDS: FUROSEMIDE 20 MG/2 ML VIAL IV PUSH SCH (09:00)
[2016-05-14] MEDS: MULTIVITAMINS/MINERALS THERAPEUTIC TAB PO SCH (09:00)
[2016-05-14] MEDS: PANTOPRAZOLE SOD 40 MG DELAYED RELEASE TAB PO SCH ×2 (09:00→20:20)
--- NOTE | 2016-05-14 13:44 | HHI.PR ---
Subjective Remarks The patient states that she is feeling better today. She is on 2 L nasal cannula. She feels her dyspnea has improved. Objective Vitals Vital Signs Date Time Temp Pulse Resp B/P Pulse Ox O2 Delivery O2 Flow Rate FiO2 05/14/16 08:54 97.2 84 16 160/98 93 05/14/16 08:38 93 Nasal Cannula 2.00 05/14/16 08:00 73 05/14/16 04:02 98.1 82 20 138/77 96 05/14/16 00:02 97.2 77 16 132/66 95 05/13/16 21:00 78 05/13/16 20:02 96.4 98 20 121/86 92 05/13/16 19:14 96 Nasal Cannula 2.00 05/13/16 16:12 95.3 96 18 130/78 95 I/O 05/13/16 05/13/16 05/13/16 05/14/16 05/14/16 05/14/16 07:00 15:00 23:00 07:00 15:00 23:00 Intake Total 120 ml 200 ml 950 ml 100 ml Output Total 450 ml 1800 ml Balance -330 ml 200 ml -850 ml 100 ml Intake Oral 120 ml 200 ml 950 ml 100 ml IV Total 0 ml Output Urine Total 450 ml 1800 ml # Voids 2 # Bowel Movements 0 1 Result Diagram: 05/12/16 1335 05/14/16 0610 Objective Remarks GENERAL: Well-nourished, well-developed pleasant elderly female patient. SKIN: Warm and dry. HEAD: Normocephalic. EYES: No scleral icterus. No injection or drainage. NECK: Supple, trachea midline. No JVD or lymphadenopathy. CARDIOVASCULAR: Regular rate and rhythm without murmurs, gallops, or rubs. RESPIRATORY: Lung sounds are equal and clear bilaterally. No accessory muscle use on 2 L nasal cannula. GASTROINTESTINAL: Abdomen soft, non-tender, nondistended. EXTREMITIES: Trace pedal edema bilaterally. NEUROLOGICAL: Awake, alert, and oriented x 3. Non-focal. Cognitively sharp. A/P Problem List: (1) Acute on chronic respiratory failure with hypoxia and hypercapnia ICD Code: J96.21 Status: Resolved (2) Acute exacerbation of congestive heart failure ICD Code: I50.9 Status: Acute (3) Accelerated hypertension ICD Code: I10 Status: Resolved (4) Coronary artery disease ICD Code: I25.10 Status: Chronic (5) Hyperlipidemia ICD Code: E78.5 Status: Chronic (6) Diabetes ICD Code: E11.9 Status: Chronic (7) Hypothyroidism ICD Code: E03.9 Status: Acute (8) Chronic atrial fibrillation ICD Code: I48.2 Status: Chronic Assessment and Plan Acute congestive heart failure, diastolic. Left ventricular ejection fraction is 55%, with dilated left and right atrium, mild aortic stenosis and mild mitral valve regurgitation. Accelerated hypertension could be the etiology of the acute CHF DC IV Lasix and start Lasix 40 mg by mouth twice a day. Continue potassium 20 mEq daily Monitor strict input and output - patient declines Blake BNP was not elevated on admission. -Trace bilateral pleural effusion-not enough fluid for thoracentesis. Accelerated hypertension - improved. Continue home medications Clonidine as needed Acute on chronic hypercapnic, hypoxic respiratory failure, likely secondary to the congestive heart failure exacerbation and left pleural effusion-now resolved and stable on 2 L nasal cannula. Continue O2 supplementation maintain O2 sats greater than 92% -DuoNeb's when necessary. History of left upper lobe lung mass versus nodule. Only scarring is seen on the chest x-ray. Chest CT here did not note a lung nodule. Chronic atrial fibrillation Anticoagulated with Xarelto Continue Cardizem Diabetes Oral hypoglycemics have been continued Accu-Cheks with sliding scale insulin Hyperlipidemia continue statin Hypothyroidism Continue replacement therapy DVT prevention Patient on Xarelto DO NOT RESUSCITATE CODE STATUS. Discharge Planning Possible discharge home tomorrow. Problem Qualifiers (1) Acute exacerbation of congestive heart failure: Qualified Code: I50.33 - Acute on chronic diastolic congestive heart failure (2) Coronary artery disease: Qualified Code: I25.10 - Coronary artery disease, angina presence unspecified, unspecified vessel or lesion type, unspecified whether [place] or transplanted heart (3) Hyperlipidemia: Qualified Code: E78.5 - Hyperlipidemia, unspecified hyperlipidemia type (4) Diabetes: Qualified Code: E11.8 - Type 2 diabetes mellitus with complication, without long-term current use of insulin (5) Hypothyroidism: Qualified Code: E03.9 - Hypothyroidism, unspecified type Samara Amin MD May 14, 2016 13:44
[2016-05-14] MEDS: FUROSEMIDE 40 MG TAB PO SCH (16:58)
[2016-05-14] MEDS: DILTIAZEM-CD 120 MG CAP ER PO SCH (20:20)
[2016-05-14] MEDS: RIVAROXABAN 15 MG TAB PO SCH (20:20)
[2016-05-14] MEDS: diphenhydrAMINE HCL 25 MG CAP PO PRN (20:20)
[2016-05-14] MEDS: ATORVASTATIN 10 MG TAB PO SCH (20:20)
[2016-05-15] VITALS: BP 108/60; PULSE 82; RESP 18; TEMP 97.6; O2SAT 92
[2016-05-15 05:57] VITALS: PULSE 74; O2SAT 96
[2016-05-15] MEDS: LEVOTHYROXINE SODIUM 50 MCG TAB PO SCH (05:58)
[2016-05-15] MEDS: INSULIN ASPART SUPPLEMENTAL SCALE SQ SCH ×2 (06:00→11:00)
[2016-05-15 07:15] VITALS: O2SAT 93
[2016-05-15 08:00] VITALS: PULSE 68
[2016-05-15] MEDS: POTASSIUM CHLORIDE 20 MEQ CONTROLLED RELEASE TAB PO SCH (08:55)
[2016-05-15] MEDS: glipiZIDE 5 MG TAB PO SCH (08:56)
[2016-05-15] MEDS: MAGNESIUM OXIDE 400 MG TAB PO SCH (08:56)
[2016-05-15] MEDS: DILTIAZEM-CD 240 MG CAP ER PO SCH (08:56)
[2016-05-15] MEDS: MULTIVITAMINS/MINERALS THERAPEUTIC TAB PO SCH (08:56)
[2016-05-15] MEDS: VALSARTAN 160 MG TAB PO SCH (08:56)
[2016-05-15] MEDS: LACTOBACILLUS ACIDOPHILUS TAB PO SCH (08:56)
[2016-05-15] MEDS: FUROSEMIDE 40 MG TAB PO SCH (08:56)
[2016-05-15] MEDS: PANTOPRAZOLE SOD 40 MG DELAYED RELEASE TAB PO SCH (08:57)
[2016-05-15 08:59] VITALS: BP 125/90; PULSE 80; RESP 14; TEMP 97.2; O2SAT 95
[2016-05-15] MEDS: SODIUM CHLORIDE 0.9% FLUSH 5 ML FLUSH FLUSH SCH (09:00)
[2016-05-15 12:32] LABS: POTASSIUM 3.6 MEQ/L (3.5-5.1)
[2016-05-15 12:41] VITALS: BP 122/62; PULSE 83; RESP 16; TEMP 97.4; O2SAT 98
[2016-05-15 12:41] LABS: BICARBONATE 37.8 MEQ/L (21.0-32.0)
--- NOTE | 2016-05-15 13:32 | HHI.DS ---
Discharge Summary Admission Date May 12, 2016 at 14:47 Discharge Date: May 15, 2016 Admitting Diagnosis acute of exac of chronic systolic CHF, L pleural effusion (1) Acute on chronic respiratory failure with hypoxia and hypercapnia ICD Code: J96.21 (2) Acute exacerbation of congestive heart failure ICD Code: I50.9 (3) Accelerated hypertension ICD Code: I10 (4) Coronary artery disease ICD Code: I25.10 (5) Hyperlipidemia ICD Code: E78.5 (6) Diabetes ICD Code: E11.9 (7) Hypothyroidism ICD Code: E03.9 (8) Chronic atrial fibrillation ICD Code: I48.2 Procedures None Brief History - From Admission 85-year-old female with known history of hypertension, hyperlipidemia , congestive heart failure, chronic atrial fibrillation, chronic respiratory failure on home oxygen, diabetes, hypothyroidism who presented to hospital because of shortness of breath and dyspnea. Patient does have chronic respiratory failure which she is on 2 L of oxygen at night. Patient states that she has been using it however she has noticed that she is very tired whenever she takes it off in the morning. The patient is rather pleasant [place] She [place] between [facility] which one is in [place], another in [place], and another one in [facility]. She does have primary medical doctors, economic geographer and energy efficiency engineer in all 3 states. Her and her daughter from [place] were traveling down to [place] for a little get away 1-1/2 weeks ago. Over the last 3-4 days she has had increased shortness of breath, dyspnea on exertion. [place] able [place] walk out to the end, however she had to stop multiple times on the walk back. She started struggling with breathing so she came to the hospital for evaluation. Patient found to have acute respiratory failure with hypoxia, hypercapnia with CHF exacerbation. Patient denies any chest pain , abdominal pain, nausea, vomiting, diaphoresis. Patient does have history of left-sided lung nodule which she is followed by energy efficiency engineer. She states that she just had x-rays done and does not appear to have grown in any size. CBC/BMP: 05/12/16 1335 05/15/16 1155 Significant Findings Laboratory Tests Test 05/12/16 05/12/16 05/13/16 05/14/16 13:35 14:35 05:40 06:10 Mean Corpuscular Volume 78.5 FL (80.0-100.0) Mean Corpuscular Hemoglobin 24.7 PG (27.0-34.0) Mean Corpuscular Hemoglobin 31.4 % Concent (32.0-36.0) Red Cell Distribution Width 17.8 % (11.6-17.2) Neutrophils (%) (Auto) 74.4 % (16.0-70.0) Monocytes (%) (Auto) 10.8 % (0.0-8.0) Prothrombin Time 14.7 SEC (9.8-11.6) Carbon Dioxide Level 37.4 MEQ/L 39.4 MEQ/L 39.2 MEQ/L (21.0-32.0) (21.0-32.0) (21.0-32.0) Estimat Glomerular Filtration 56 ML/MIN (>89) 52 ML/MIN (>89) 47 ML/MIN (>89) Rate Random Glucose 72 MG/DL 126 MG/DL (74-106) (74-106) Blood Gas HCO3 36 mmol/L (22-26) Blood Gas Base Excess 11.0 mmol/L (-2-2) Blood Gas Oxygen Saturation 84 % (90-100) Arterial Blood pH 7.45 (7.380-7.420) Arterial Blood Partial 52 mmHG (38-42) Pressure CO2 Arterial Blood Partial 57 mmHG Pressure O2 (61-120) Blood Urea Nitrogen 20 MG/DL (7-18) Creatinine 1.10 MG/DL (0.50-1.00) Test 05/15/16 11:55 Carbon Dioxide Level 37.8 MEQ/L (21.0-32.0) Blood Urea Nitrogen 19 MG/DL (7-18) Estimat Glomerular Filtration 52 ML/MIN (>89) Rate Random Glucose 47 MG/DL (74-106) Imaging Last Impressions Consultation 05/13/16 0000 Signed Impressions: Service Date/Time: Friday, May 13, 2016 00:00 - CONCLUSION: Insufficient volume for CT guided thoracentesis of the left hemithorax. Lj Marquez MD Chest X-Ray 05/13/16 0000 Signed Impressions: Service Date/Time: Friday, May 13, 2016 09:58 - CONCLUSION: No significant change. Ronen Flanagan MD Chest CT 05/13/16 0000 Signed Impressions: Service Date/Time: Friday, May 13, 2016 12:19 - CONCLUSION: 1. Cardiomegaly with mild interstitial edema. 2. Extensive coronary calcifications including LAD and circumflex. 3. Circumflex stenting is evident. 4. Trace pleural effusion. Xander Fonseca MD FACR PE at Discharge GENERAL: Well-nourished, well-developed pleasant elderly female patient. SKIN: Warm and dry. HEAD: Normocephalic. EYES: No scleral icterus. No injection or drainage. NECK: Supple, trachea midline. No JVD or lymphadenopathy. CARDIOVASCULAR: Regular rate and rhythm without murmurs, gallops, or rubs. RESPIRATORY: Lung sounds are equal and clear bilaterally. No accessory muscle use on 2 L nasal cannula. GASTROINTESTINAL: Abdomen soft, non-tender, nondistended. EXTREMITIES: Trace pedal edema bilaterally. NEUROLOGICAL: Awake, alert, and oriented x 3. Non-focal. Cognitively sharp. Pt update on day of discharge The patient is feeling well today. She did have an episode of hypoglycemia before lunch that resolved after eating. Her daughter states she has been having low blood sugar in the afternoons which is symptomatic with feelings of shakiness, sweating. They carry high sugar snacks for her. Her recent hemoglobin A1c was 6.4. Hospital Course The patient was admitted and treated for acute congestive heart failure which was diastolic and may have been exacerbated by uncontrolled high blood pressure. An echocardiogram was obtained which revealed left ventricular ejection fraction of 55%, with dilated left and right atrium, mild aortic stenosis and mild mitral valve regurgitation. She diuresed well was transitioned to Lasix by mouth. BNP was not elevated on admission. A chest CT was obtained which showed trace bilateral pleural effusions not sufficient for thoracentesis. The patient was resumed on her home blood pressure medications with good control blood pressure. The patient is stable on 2-3 L of nasal cannula. She ambulated 100 feet with physical therapy yesterday and did very well without any desaturations. She already has home oxygen with a concentrator. We are arranging her a portable oxygen concentrator as she will be traveling to [place] next week with her daughter. Because she had been having symptoms consistent with low blood sugar in the afternoon I recommended that she stop her glipizide. The patient was reluctant to do this stating she been on it since 2011. She did agree to decrease it by half. She also agreed to check her blood pressure 4 times a day and to continue with high sugar snacks in the afternoon. I discussed this as well with her daughter who was present at bedside. The patient is feeling well and is agreeable for discharge home with her daughter. She will follow-up with her physicians in [place] next week. Pt Condition on Discharge: Stable Discharge Disposition: Discharge Home Discharge Time: > 30 minutes Discharge Instructions DIET: Follow Instructions for: Heart Healthy Diet, Diabetic Diet Activities you can perform: Regular-No Restrictions New Medications: Oxygen tank (Oxygen tank) 1 Ea Tank 2 LITER KEATON.CANULA CONTINUOUS Oxygen Concentrator Portable Gaseous 2 L/min via Nasal Cannula Continuous For 99 months HYPOXEMIA PREVENTION #2 CYLINDER ([port O2 concentrator]) prevent hypoxemia #1 Changed Medications: Furosemide (Furosemide) 20 Mg Tab 20 MG PO DAILY take 40 mg po daily x 3 days then resume 20 mg daily. chf #30 Ref 0 TAB (Medication details modified) Glipizide ER (Glipizide ER) 2.5 Mg Brianda 1.25 MG PO DAILY Take with breakfast or first main meal of the day Blood Sugar Management #30 Ref 0 TAB (Changed from: 2.5 MG) Continued Medications: Atorvastatin (Lipitor) 10 Mg Tab 10 MG PO HS Cholesterol Management #30 Ref 0 TAB Cetirizine (Zyrtec Allergy) 10 Mg Cap 10 MG PO DAILY Allergies Ref 0 CAP Cholecalciferol (Vitamin D) 1,000 Unit Tab 1000 UNITS PO DAILY Nutritional Supplement #1 Ref 0 BOTTLE Coenzyme Q10 (Ubidecarenone) (Coq10) 100 Mg Cap 100 MG PO DAILY Diltiazem (Cardizem) 120 Mg Tab 120 MG PO HS Angina #120 Ref 0 TAB Diltiazem ER 24 HR (Cardizem LA) 240 Mg Brianda 240 MG PO DAILY #30 Ref 0 TAB Lactobacillus Acidophilus (Probiotic) 1 Cap Cap 1 CAP PO DAILY Nutritional Supplement #90 Ref 0 CAP Levothyroxine (Synthroid) 50 Mcg Tab 50 MCG PO DAILY Thyroid #30 Ref 0 TAB Magnesium Oxide (Magnesium Oxide) 400 Mg Cap 400 MG PO DAILY Multiple Vitamins W/ Minerals (Multi Complete) 1 Cap Cap 1 CAP PO DAILY Nitroglycerin Patch 24 HR (Nitro-Dur Patch 24 HR) 0.2 Mg/Hr Patch 0.2 MG T-DERMAL DAILY PRN on 10 hours off 14 hours #30 Ref 0 PATCH Pantoprazole (Protonix) 40 Mg Tab 40 MG PO BID Reflux #30 Ref 0 TAB Potassium Chloride ER (K-Tab) 20 Meq Tab 20 MEQ PO DAILY Electrolyte Replacement #30 Ref 0 TAB Rivaroxaban (Xarelto) 15 Mg Tab 15 MG PO HS Blood Clot Prevention Ref 0 TAB Valsartan (Diovan) 160 Mg Tab 160 MG PO BID #60 Ref 0 TAB Samara Amin MD May 15, 2016 13:32
[2016-05-15] MEDS ORDERED: FURO20TA PO (13:34)
[2016-05-15] MEDS ORDERED: GLIP1TAB60 PO (13:34)
== END 2016-05-15 15:07 | disposition home or self-care (01) | DRG 291 ==
LOC: PHED 12:55 → PHEDA 14:47 → PH3A 15:57
PROVIDERS: ADMIT Family Medicine; ATTEND Family Medicine
PROC: 3E0F7GC Introduction of Other Therapeutic Substance into Respiratory Tract, Via Natural or Artificial Opening (ICD-10-PCS; principal; 2016-05-12)
DX: I50.23 Acute on chronic systolic (congestive) heart failure (principal); J96.22 Acute and chronic respiratory failure with hypercapnia; J96.21 Acute and chronic respiratory failure with hypoxia; I42.9 Cardiomyopathy, unspecified; E11.8 Type 2 diabetes mellitus with unspecified complications; I48.2 Chronic atrial fibrillation; R91.8 Other nonspecific abnormal finding of lung field; I08.0 Rheumatic disorders of both mitral and aortic valves; E78.00 Pure hypercholesterolemia, unspecified; I10 Essential (primary) hypertension; E03.9 Hypothyroidism, unspecified; K44.9 Diaphragmatic hernia without obstruction or gangrene; I25.119 Atherosclerotic heart disease of native coronary artery with unspecified angina pectoris; E78.5 Hyperlipidemia, unspecified; Z66 Do not resuscitate; Z99.81 Dependence on supplemental oxygen; Z87.442 Personal history of urinary calculi; Z87.891 Personal history of nicotine dependence; Z95.5 Presence of coronary angioplasty implant and graft; Z88.8 Allergy status to other drugs, medicaments and biological substances; Z91.013 Allergy to seafood; Z79.84 Long term (current) use of oral hypoglycemic drugs
CPT/HCPCS: 36600; 71010; 71250; 80048; 80076; 82805; 82948; 83735; 83880; 85025; 85610; 87015; 93005; 93306; 94640; 94664; 94762; 96374; J1815; J1940